=== PATIENT | female | born 1980 | race African-American/Black ===

== ENCOUNTER 2017-05-10 19:14 | Emergency (ER) | payer MEDICAID ==
[~2017-05-10] VITALS: Ht 170.2 cm; Wt 84.8 kg
[~2017-05-10 19:14] MED LIST: AMOXICILLIN500 MG ORAL; AUGMENTIN 875-1 EAC1 ORAL; CORTISPORIN10 ML *; DEBROX15 ML BOTH EARS; GENTAMICIN SULF15 G2 TOPIC; IBUPROFEN600 MG ORAL; NORCO 5-325 TA1 EACH ORAL; VALIUM5 MG ORAL
[2017-05-10 19:36] VITALS: BP 102/61
[2017-05-10] MEDS ORDERED: Carbamide Peroxide 6.5% Ot Sol 15ML BOTH EARS STA (19:40)
[2017-05-10] MEDS ORDERED: Lidocaine 2% Visc 15ml soln ORAL ONE (19:45)
[2017-05-10 19:52] LABS: APPEARANCE,URINE SLIGHTLY CLOUDY; KETONES,URINE NEGATIVE (NEGATIVE); LEUKOCYTE ESTERASE ,URINE 3+ (NEGATIVE); NITRITE,URINE NEGATIVE (NEGATIVE); PH,URINE 7 (4.5-8.0); PROTEIN,URINE NEGATIVE (NEGATIVE); UROBILINOGEN,URINE 1 MG/DL (0.0-1.0)
[2017-05-10 19:54] LABS: RBC,URINE 0-2 /HPF (0 - 2); SQUAMOUS EPITHELIAL CELL,UR MANY /LPF (NONE/OCC); WBC,URINE 20-30 /HPF (0 - 2)
[2017-05-10 19:56] LABS: BACTERIA,URINE MODERATE /HPF
[2017-05-10 19:57] LABS: ICTOTEST NEGATIVE
--- NOTE | 2017-05-10 21:04 | Emergency Room Report ---
History of Present Illness General Chief Complaint: Earache Source: Patient Present Illness HPI Patient with 2 complaints. 1 - gum abscess. Some drainage with brushing. No fevers. Pain is minimal. 2 - both ears with wax. Decreased hearing R side. No other somatic complaints. Not . Allergies: Coded Allergies: No Known Allergies (Verified Allergy, Unknown, 04/17/09) Patient History Past Medical History: see triage record Social History: Reports: smoking Last Menstrual Period: 04/21/17 : 13 Para: 3 Reviewed Nursing Documentation: PMH: Agreed, PSxH: Agreed Nursing Documentation-PMH Hx Cardiac Problems: No Review of Systems Constitutional: Denies: fever Eye: Reports: see HPI ENT: Reports: see HPI Respiratory: Denies: shortness of breath Cardiovascular: Denies: chest pain Gastrointestinal: Denies: nausea, vomiting Genitourinary: Denies: discharge, dysuria Skin: Denies: rash Neurological: Denies: headache Physical Exam Vital Signs Date Time Temp Pulse Resp B/P Pulse Ox O2 Delivery O2 Flow Rate FiO2 05/10/17 19:21 98.4 72 16 102/61 98 Room Air Sp02 EP Interpretation: reviewed, normal General Appearance: normal inspection, well appearing, no apparent distress Head: normocephalic, atraumatic Eyes: bilateral eye normal inspection, bilateral eye PERRL ENT: hearing grossly normal, normal voice, other - cerumen bilat, also 1 cm abscess L lower gum Neck: full range of motion, supple Respiratory: no respiratory distress, speaking full sentences Musculoskeletal: no calf tenderness Neurologic: alert, normal gait Psychiatric: mood/affect normal Skin: no rash Procedures Additional Procedure Procedure Narrative lidocaine viscous. H2O2. Incised abscess with some drainage 11 blade. Tolerated well. Medical Decision Making Diagnostic Impression: Primary Impression: Gum abscess Additional Impression: Cerumen impaction Qualified Codes: H61.23 - Impacted cerumen, bilateral ER Course Gum abscess. Requests I and D. Antibiotics indicated. Cerumen impaction. Cerumenex and irrigation. Exam with normal TMs. Abscess decompressed. Improved after treatment. Patient stable for outpatient observation and treatment. Last Vital Signs Date Time Temp Pulse Resp B/P (MAP) Pulse Ox O2 Delivery O2 Flow Rate FiO2 05/10/17 21:10 98.4 72 16 102/61 98 Room Air Status: improved Disposition: HOME, SELF-CARE Condition: Improved Scripts Amoxicillin* (AMOXIL*) 500 Mg Capsule 500 MG ORAL THREE TIMES A DAY, #21 CAP Prov: Vamshi Petersen M.D. 05/10/17 Referrals: NON PHYSICIAN (PCP) Vamshi Petersen M.D. May 10, 2017 21:04
[2017-05-10] MEDS ORDERED: AMOXICILLIN500 MG ORAL (21:07)
[2017-05-10 21:10] VITALS: BP 102/61
== END 2017-05-10 21:20 | disposition home or self-care (01) ==
LOC: EMR 19:55
DX: K05.219 Aggressive periodontitis, localized, unspecified severity (principal); H61.23 Impacted cerumen, bilateral; F17.200 Nicotine dependence, unspecified, uncomplicated
CPT/HCPCS: 10060; 81003; 81025; 87086; 99283

== ENCOUNTER 2020-08-31 12:36 | Emergency (ER) | payer MEDICAID ==
[~2020-08-31] VITALS: Ht 170.2 cm; Wt 90.7 kg
--- NOTE | 2020-08-31 12:47 | NUR ---
ED Nurse Note: Pt walked into ED for sore throat, nausea, and diarrhea since last night. She states she has thrown up 2x. Pt is alert and orientedx4, ambulatory. She says she was tested for COVID 2 months ago and was (-) but would like to be tested again.
[2020-08-31 12:48] VITALS: BP 103/52
[2020-08-31] MEDS ORDERED: ZOFRAN ODT8 MG ORAL (12:49)
[2020-08-31] MEDS ORDERED: ZITHROMAX250 MG ORAL (12:49)
--- NOTE | 2020-08-31 13:06 | Emergency Room Report ---
History of Present Illness General Chief Complaint: Sore Throat Source: Patient Present Illness HPI 39-year-old female here with 2 days of sore throat. Has had one episode of vomiting and DIARRHEA EARLIER TODAY. SHE HAS NO VOMITING OR NAUSEA now. DOES NOT KNOW WHETHER SHE HAS BEEN EXPOSED TO COVID-19, HOWEVER SHE HAS BEEN EXPOSED TO MANY PEOPLE RECENTLY. At this time denies fevers, chills, chest pain, pal pitation, shortness breath, cough, back pain, abdominal pain, dysuria. Allergies: Coded Allergies: No Known Allergies (Verified Allergy, Unknown, 04/17/09) COVID-19 Screening Contact w/high risk pt: No Experienced COVID-19 symptoms?: No COVID-19 Testing performed NETWORK MGR: No Patient History Now: No Nursing Documentation-[facility] Past Medical History: No Stated History Hx Cardiac Problems: No Review of Systems All Other Systems: negative except mentioned in HPI Physical Exam Vital Signs Date Time Temp Pulse Resp B/P (MAP) Pulse Ox O2 Delivery O2 Flow Rate FiO2 08/31/20 12:38 98.1 70 16 97/50 (66) 99 Room Air Sp02 EP Interpretation: reviewed, normal General Appearance: no apparent distress, alert, non-toxic Head: normocephalic, atraumatic Eyes: bilateral eye normal inspection, bilateral eye PERRL ENT: hearing grossly normal, normal pharynx, no angioedema, normal voice Neck: full range of motion, supple/symm/no masses Respiratory: chest non-tender, lungs clear, normal breath sounds, speaking full sentences Cardiovascular #1: regular rate, rhythm, no edema Cardiovascular #2: 2+ carotid (R), 2+ carotid (L), 2+ radial (R), 2+ radial (L), 2+ dorsalis pedis (R), 2+ dorsalis pedis (L) Gastrointestinal: normal bowel sounds, non tender, soft, non-distended, no guarding, no rebound Rectal: deferred Genitourinary: normal inspection, no CVA tenderness Musculoskeletal: back normal, normal range of motion, gait/station normal, non- tender Neurologic: alert, motor strength/tone normal, oriented x3, sensory intact, responsive, speech normal Psychiatric: judgement/insight normal, memory normal, mood/affect normal, no suicidal/homicidal ideation Lymphatic: no adenopathy Medical Decision Making Diagnostic Impression: Primary Impression: Sore throat ER Course Patient here with URI symptoms. Patient was well-appearing and did not have any vital sign abnormalities. Normal oxygen saturation. Patient was told to follow-up with primary care physician or go to an outpatient testing center to be tested for COVID-19. No indication for testing at this time in the emergency department given well appearance. Was told to come back to the emergency department if any worsening shortness of breath, fevers, nausea, vomiting. I told the patient that there would not of resources in this emergency department to test everyone with COVID-19 regardless of whether they are admitted or discharge, the patient became very angry and combative and verbally abusive. She said "you are not taking care of me." Patient exhibited no evidence of shortness of breath whatsoever and had normal oxygen saturation and otherwise normal vital signs in the emergency department. I told the patient that there are very limited supplies at this time of COVID-19 testing kits and so these are only being reserved for admitted patients. Patient was given Decadron for her sore throat as well as p.o. Zofran. She exhibited no evidence of nausea in the emergency department. She was given a prescription for azithromycin and Zofran and told to follow-up with her primary care provider or visit an outpatient testing center for COVID-19 testing. Discharged in stable condition. Last Vital Signs Date Time Temp Pulse Resp B/P (MAP) Pulse Ox O2 Delivery O2 Flow Rate FiO2 08/31/20 12:48 98.1 84 18 103/52 98 Room Air Disposition: HOME, SELF-CARE Condition: Stable Scripts Azithromycin* (ZITHROMAX*) 250 Mg Tablet 250 MG ORAL DAILY, #6 TAB 0 Refills Take two tables once daily for 1 day, then one tablet once daily for 4 days. Prov: Marshall Shelby M.D. 08/31/20 Ondansetron Odt* (ZOFRAN ODT*) 8 Mg Tab.rapdis 8 MG ORAL Q6H PRN for Nausea & Vomiting, #12 TAB Prov: Marshall Shelby M.D. 08/31/20 Referrals: Replaced By [facility] Patient Instructions: Laryngitis Additional Instructions: Please follow-up with your primary care doctor in the next 1 to 3 days to discuss this emergency department visit and for reevaluation. If you have any new or worsening symptoms please return to the emergency department for reevaluation. Marshall Shelby M.D. Aug 31, 2020 13:06
--- NOTE | 2020-08-31 13:41 | NUR ---
ER DISCHARGE NOTE: Patient is cleared to be discharged per ERMD, pt is aox4, on room air, with stable vital signs. pt was given dc and prescription instructions, pt was able to verbalize understanding, pt id band removed. pt is able to ambulate with steady gait. pt took all belongings. Pt educated regarding f/u, prescriptions, and outpatient COVID testing centers.
[2020-08-31 13:42] VITALS: BP 113/56
== END 2020-08-31 13:43 | disposition home or self-care (01) ==
LOC: EMR 12:55
DX: J02.9 Acute pharyngitis, unspecified (principal)
CPT/HCPCS: 81025; J8540; Z7502; 99283